=== PATIENT | male | born 1980 | race Caucasian/White ===

== ENCOUNTER → 2022-08-20 07:44 | Outpatient (CLI) | payer OTHER, SELFPAY ==
--- NOTE | ~2022-08-20 | MMUS_ITS ---
EXAMINATION: MM diagnostic mammo unilat LT, US breast LT limited HISTORY: Palpable left breast lump TECHNIQUE: Additional 3-D tomosynthesis images of the left breast were performed and synthetic 2-D im ages were generated. Comparison right medial lateral view performed. CAD analysis was submitted and interpreted. High reso lution Limited left breast ultrasound was performed. COMPARISON: None BREAST PARENCHYMAL COMPOSITION: Breast composed of scattered areas of fibroglandular density FINDINGS: MAMMOGRAPHIC FINDINGS: There is asymmetric gynecomastia, more prominent on the left. No discrete mass or architectural disto rtion. No suspicious calcifications. ULTRASOUND: Limited left breast ultrasound: There is normal appearance to the subareolar soft tissue of the left breast, consistent with breast bud. No suspicious masses or fluid collections. IMPRESSION: 1. No evidence for malignancy. Benign asymmetric gynecomastia. 2. Recommend follow-up clinical management for gynecomastia. BI-RADS Category 2: Benign finding(s). Reviewed, dictated and finalized at location A. IMPRESSION: 1. No evidence for malignancy. Benign asymmetric gynecomastia. 2. Recommend follow-up clinical management for gynecomastia. BI-RADS Category 2: Benign finding(s).
== END ==
PROVIDERS: PCP Nurse Practitioner; Visit Provider Nurse Practitioner
DX: N63.20 Unspecified lump in the left breast, unspecified quadrant (principal)
CPT/HCPCS: 76642; 77065

== ENCOUNTER 2023-02-17 15:34 | Emergency (ER) | payer OTHER, SELFPAY ==
[2023-02-17 15:43] VITALS: BP 118/75; PULSE 88; RESP 20; TEMP 37.3; O2SAT 97
--- NOTE | 2023-02-17 15:49 | ED.EXTPRO ---
HPI - Extremity Problem General Chief complaint: Extremity Problem,Nontraumatic Stated complaint: Legs Swelling Time Seen by Provider: 02/17/23 15:49 Source: patient, RN notes reviewed and old records reviewed Mode of arrival: ambulatory Limitations: no limitations History of Present Illness HPI Narrative: 42-year-old male presents to the [facility] with complaints of bilateral leg swelling for months. Patient also reports that on the left anterior there has been some discoloration for quite awhile. States he bumped it at 1 time it has not completely healed. No increased warmth to the area at this time. Patient states when he is up walking the swelling gets worse. Goes to bed at night the swelling goes away. Denies any chest pain, shortness of breath. Negative Homans sign MD Complaint: extremity swelling (Bilateral) Related Data Allergies Allergy/AdvReac Type Severity Reaction Status Date / Time No Known Allergies Allergy Verified 02/17/23 15:36 Review of Systems Review of Systems: All systems reviewed & are unremarkable except as noted in HPI and below Constitutional: Constitutional: Reports no additional constitutional complaints Eyes: Eyes: Reports no additional eye complaints ENT: Reports system reviewed and no additional complaints, except as documented Cardiovascular: Cardiovascular: Reports no additional cardiovascular complaints, Denies chest pain and Denies dyspnea Respiratory: Respiratory: Reports no additional respiratory complaints, Denies chest congestion, Denies cough and Denies dyspnea Gastrointestinal: Gastrointestinal: Reports no additional gastrointestinal complaints, Denies abdominal pain, Denies nausea and Denies vomiting Musculoskeletal: Musculoskeletal: Reports as per HPI Integumentary/Breasts: Skin/Breast: Reports system reviewed and no additional complaints, except as docu Neurologic: Reports system reviewed and no additional complaints, except as documented Psychiatric: Psychiatric: Reports no additional psychiatric complaints Allergic/Immunologic: Allergic/Immunologic: Reports no additional allergic/immunologic complaints [facility] Family History Family History Mother Hypertension Heart disease Other Alzheimer disease Social History Social History Social History: Caffeine- soda Smoking status: Current every day smoker (vapor) Tobacco type: e-cigarettes/vaping Alcohol intake: current Drinks per week: 1 Alcohol use details: Vodka/Whiskey Substance use: current Substance use type: marijuana Occupation/Education: occupation Gender identity (if verbalized by the patient): Male Comments At the time of my signature, I reviewed and agree with the nursing past medical, surgical, social, and family history. There is no relevant family history pertinent to the patient complaint. Exam Const: General: cooperative, healthy appearing, comfortable, no acute distress, well developed, alert and well nourished Nutritional Appearance: well nourished and obese morbidly obese Orientation/consciousness: patient oriented x3 Limitations: no limitations HENMT: Head: normal to inspection Ears: hearing grossly normal bilaterally and external ears normal Face/Nose/Sinus: Normal external nose present, Normal nares present, Normal nasal mucous membranes and turbinates present and normal facial exam Face and sinus: normal facial exam Mouth: Yes Normal oral and palatal mucosa present, Yes lip normal and Yes moist mucous membranes Eyes: General: appearance normal, both eyes and all related structures Alignment and Position: alignment normal Periorbital: periorbital findings normal Conjunctivae: conjunctivae normal Pupils: Equal, round and reactive pupils present EOM: EOMs intact bilaterally Neck: Neck: normal visual inspection, full ROM, no lymphadenopathy and no meningeal sig
== END 2023-02-17 16:06 | disposition home or self-care (01) ==
PROVIDERS: Emergency Provider Nurse Practitioner; PCP Family Medicine
DX: R60.0 Localized edema (principal); F17.290 Nicotine dependence, other tobacco product, uncomplicated; F12.90 Cannabis use, unspecified, uncomplicated
CPT/HCPCS: 99211; G0463

== ENCOUNTER 2023-03-24 09:00 | Outpatient (CLI) | payer OTHER, SELFPAY ==
--- NOTE | 2023-03-24 13:36 | ECHO_ITS ---
Patient Info Name: Issac Scruggs Age: 42 years : 1980 Gender: Male Ht: 72 in Wt: 383 lbs BSA: 3.06 m2 HR: 89 bpm BP: 138 / 87 mmHg Technical Quality: Poor Exam Date: 03/24/2023 2:08 PM Exam Location: [facility] Patient Status: Outpatient Admit Date: 03/24/2023 Staff Ordering Physician: Cristina Silverman DO Division Roadmaster: Shay Encarnacion RDCS Attending Provider: Cristina Silverman DO Referring Physician: Herrera LYNN; Exam Type: CA echo doppler color flow Study Info Indications - localized swelling TRAVIS MASS /LUMP Complete two-dimensional, color flow and Doppler transthoracic echocardiogram is performed with contrast to opacify the left ventricle and to improve the deliniation of the left ventricle endocardial borders. Contrast/Agitated Saline Contrast/Ag. Saline: Definity Amount: 4.00 ml Administered By: Odette Jay Existing IV Access: Yes IV Access Condition: patent with no signs of infiltration New IV Access: Left Site Condition: IV removed Reason for Poor Study: patient body habitus Summary 1. Technically suboptimal study due to poor sonographic images. 2. Definity contrast administered improved wall motion interpretation. 3. Left ventricular chamber dimension is normal. 4. Left ventricular systolic function is normal, estimated at 65-70%. 5. The left ventricular diastolic function is normal. 6. E/e' 6 is not elevated. 7. No pulmonary hypertension, estimated pulmonary arterial systolic pressure is 8 mmHg. Left Ventricle E/e' 6 is not elevated. Definity contrast administered improved wall motion interpretation. Technically suboptimal study due to poor sonographic images. Left ventricular chamber dimension is normal. Left ventricular systolic function is normal, estimated at 65-70%. The left ventricular diastolic function is normal. Right Ventricle Right ventricular chamber dimension is normal. Right ventricular systolic function is normal. Left Atria Left atrial chamber dimension is normal. Right Atria Right atrial chamber dimension is normal. Aortic Valve The aortic valve is probable trileaflet. There is no aortic valve stenosis. There is no aortic valve regurgitation. Pulmonic Valve There is no pulmonic regurgitation. Mitral Valve There is no mitral valve stenosis. There is no mitral valve regurgitation. Tricuspid Valve There is no tricuspid valve regurgitation. No pulmonary hypertension, estimated pulmonary arterial systolic pressure is 8 mmHg. Pericardium/Pleural There is no pericardial effusion. Inferior Vena Cava Normal inferior vena cava with >50% collapse upon inspiration consistent with normal right atrial pressure, 5 mmHg. Aorta The aortic root size at the sinus of Valsalva is normal. Left Ventricular Outflow Tract Name Value Normal LVOT 2D LVOT Diameter 2.4 cm LVOT Doppler LVOT Peak Gradient 3 mmHg LVOT Mean Gradient 2 mmHg LVOT VTI 21 cm LVOT VTI/AV VTI Ratio 1.3 LVOT Stroke Volume 93 ml LVOT CO
[2023-03-24] MEDS: PERFLUTREN LIPID MICROSPHERES 1.5 ML VIAL DILUTED TO 10 ML TOTAL VOLUME IV PUSH (14:55)
== END 2023-03-24 09:01 | disposition home or self-care (01) ==
PROVIDERS: PCP Family Medicine; Visit Provider Family Medicine
DX: R22.43 Localized swelling, mass and lump, lower limb, bilateral (principal)
CPT/HCPCS: C8929; Q9957

== ENCOUNTER 2023-10-28 11:25 | Emergency (ER) | payer OTHER, SELFPAY ==
[2023-10-28 11:34] VITALS: BP 135/87; PULSE 77; RESP 16; TEMP 36.8; O2SAT 100
--- NOTE | 2023-10-28 11:43 | ED.GENADULT ---
HPI - General Adult General Chief complaint: Skin/Abscess/Foreign Body Stated complaint: Cyst Time Seen by Provider: 10/28/23 11:43 Source: patient, RN notes reviewed and old records reviewed Mode of arrival: ambulatory Limitations: no limitations History of Present Illness HPI narrative: 43 year old male presents to the [facility] with concerns for a cyst to the left upper eyelid that is been there for ?years. Patient states that 2 days ago started becoming inflamed, yesterday and shower it drained some thick white pus. Area is swollen, no fluctuance noted. Denies any change in vision or blurry vision. Periorbital area is not swollen or red. Cyst measures 0.75 x 0.5 cm. Cyst is red, warm. Covering with an antibiotic referring to plastics or ophthalmology Related Data Home Medications Medication Instructions Recorded Confirmed metformin 500 mg tablet,extended 500 mg PO DAILY 03/04/23 10/28/23 release 24 hr testosterone enanthate 200 mg/mL 200 mg subcut DAILY 10/28/23 10/28/23 intramuscular oil triamcinolone acetonide 0.1 % 0.1 applic topical DIRECTED 10/28/23 10/28/23 topical cream Allergies Allergy/AdvReac Type Severity Reaction Status Date / Time No Known Allergies Allergy Verified 10/28/23 11:37 Review of Systems Review of Systems: All systems reviewed & are unremarkable except as noted in HPI and below Constitutional: Constitutional: Reports no additional constitutional complaints Eyes: Eyes: Reports as per HPI ENT: Reports system reviewed and no additional complaints, except as documented Cardiovascular: Cardiovascular: Reports no additional cardiovascular complaints, Denies chest pain and Denies dyspnea Respiratory: Respiratory: Reports no additional respiratory complaints, Denies chest congestion, Denies cough and Denies dyspnea Gastrointestinal: Gastrointestinal: Reports no additional gastrointestinal complaints, Denies abdominal pain, Denies nausea and Denies vomiting Musculoskeletal: Musculoskeletal: Reports no additional musculoskeletal complaints Integumentary/Breasts: Skin/Breast: Reports system reviewed and no additional complaints, except as docu Neurologic: Reports system reviewed and no additional complaints, except as documented Psychiatric: Psychiatric: Reports no additional psychiatric complaints Allergic/Immunologic: Allergic/Immunologic: Reports no additional allergic/immunologic complaints [facility] Family History Family History Mother Hypertension Heart disease Other Alzheimer disease Social History Social History Social History: Caffeine- soda Smoking status: Current every day smoker (vapor) Tobacco type: e-cigarettes/vaping Alcohol intake: current Alcohol use details: has a drink maybe once a month Substance use: current Substance use type: marijuana Other substance usage details: edibles Lack of Transportation: No Lack of Food: Never True Current Housing: I Have Housing Concerned About Future Housing: No Difficulty Paying Gas/Electric Bills: No Difficulty Paying for Meds: No Currently Unemployed: No Education: High School Diploma/GED Difficulty w/ Childcare or Family Care: No Occupation/Education: occupation Gender identity (if verbalized by the patient): Male Comments At the time of my signature, I reviewed and agree with the nursing past medical, surgical, social, and family history. There is no relevant family history pertinent to the patient complaint. Exam Const: General: cooperative, healthy appearing, comfortable, no acute distress, well developed, alert and well nourished Nutritional Appearance: well nourished Orientation/consciousness: patient oriented x3 Limitations: no limitations HENMT: Head: normal to inspection Ears: hearing grossly normal bilaterally and external ears normal Face/Nose/Sinus:
== END 2023-10-28 12:02 | disposition home or self-care (01) ==
PROVIDERS: Emergency Provider Nurse Practitioner; PCP Family Medicine
DX: H02.824 Cysts of left upper eyelid (principal); F17.290 Nicotine dependence, other tobacco product, uncomplicated; I10 Essential (primary) hypertension
CPT/HCPCS: 99213; G0463

== ENCOUNTER 2024-03-12 02:05 | Day surgery (SDC) | payer OTHER, SELFPAY ==
[2024-03-12 07:22] VITALS: BP 150/91; PULSE 103; RESP 19; TEMP 36.5; O2SAT 96; BMI 51.7
[2024-03-12] MEDS: LACTATED RINGERS 1,000 ML 150 ML IV CONT (07:31)
--- NOTE | 2024-03-12 07:53 | P.PNAN_ITS ---
Anes - Initial Pre Proc Eval Procedure: Operation Date: 03/12/24 08:30 Proposed Procedures p Screening Colonoscopy - Xander Sarmiento MD Date/Time: 03/12/24 07:53 Surgeon: Xander Sarmiento MD Pre Op Diagnosis: neoplasm screening Patient Data Age: 43 Gender: M Height: 1.83 m Weight: 173.2 kg Last Vital Signs Temp 97.7 F 03/12/24 07:22 Pulse 103 H 03/12/24 07:22 Resp 19 03/12/24 07:22 BP 150/91 H 03/12/24 07:22 Pulse Ox 96 03/12/24 07:22 O2 Del Method Room Air 03/12/24 07:22 Allergies Allergy/AdvReac Type Severity Reaction Status Date / Time No Known Allergies Allergy Verified 03/12/24 07:20 Home Medications Medication Instructions Recorded Confirmed Type furosemide 20 mg tablet 20 mg PO QAM #90 tabs 06/30/23 02/22/24 Rx triamcinolone acetonide 0.1 % 0.1 applic topical DIRECTED 10/28/23 02/22/24 History topical cream semaglutide (weight loss) 1.7 1.7 mg (0.75 mL) subcut WEEKLY #3 01/23/24 02/22/24 Rx mg/0.75 mL subcutaneous pen mL injector (Wegovy) semaglutide (weight loss) 2.4 2.4 mg (0.75 mL) subcut WEEKLY #9 03/06/24 03/12/24 Rx mg/0.75 mL subcutaneous pen mL injector (Wegovy) Patient hx anesthesia problems: none Family hx anesthesia problems: none Results Review: All pre-operative results and documents have been reviewed as part of the pre- operative evaluation. [facility] Family History Family History Mother Hypertension Heart disease Other Alzheimer disease Social History Social History Social History: Caffeine- soda Smoking status: Current every day smoker (vapor) Tobacco type: e-cigarettes/vaping Alcohol intake: current Alcohol use details: has a drink maybe once a month Substance use: current Substance use type: marijuana Other substance usage details: edibles Lack of Transportation: No Lack of Food: Never True Current Housing: I Have Housing Concerned About Future Housing: No Difficulty Paying Gas/Electric Bills: No Difficulty Paying for Meds: No Currently Unemployed: No Education: High School Diploma/GED Difficulty w/ Childcare or Family Care: No Occupation/Education: occupation Gender identity (if verbalized by the patient): Male Spiritual care concerns: No Anes - Eval Final PreProcedure Day of Procedure 03/12/24 07:53 Patient weight: super morbidly obese Heart: regular rate and rhythm Lungs: clear to auscultation Airway: Mallampati scale class II Neurological: alert and oriented Last oral intake: >/= 8 hours ASA classification: III Emergent: no Anesthetic plan: proceed Anesthesia type and monitoring: general GIVS and standard monitoring Results Review: All pre-operative results and documents have been reviewed as part of the pre- operative evaluation. Informed Consent: The patient's anesthetic plan and its attendant risks and benefits were discussed with the patient/family/POA. Questions were solicited and answers provided to the satisfaction of the patient/family/POA.
--- NOTE | 2024-03-12 08:28 | PM.HPGS ---
History of Present Illness History of Present Illness Consent: Risks, benefits, and alternatives have been discussed and questions answered. Patient agrees to proceed with procedure. Chief complaint: neoplasm screening Narrative: Issac Scruggs is a 43 year old male here for first screening colonoscopy Review of Systems Review of Systems: All systems reviewed & are unremarkable except as noted in HPI and below PMFSH Family History Family History Mother Hypertension Heart disease Other Alzheimer disease Social History Social History Social History: Caffeine- soda Smoking status: Current every day smoker (vapor) Tobacco type: e-cigarettes/vaping Alcohol intake: current Alcohol use details: has a drink maybe once a month Substance use: current Substance use type: marijuana Other substance usage details: edibles Lack of Transportation: No Lack of Food: Never True Current Housing: I Have Housing Concerned About Future Housing: No Difficulty Paying Gas/Electric Bills: No Difficulty Paying for Meds: No Currently Unemployed: No Education: High School Diploma/GED Difficulty w/ Childcare or Family Care: No Occupation/Education: occupation Gender identity (if verbalized by the patient): Male Spiritual care concerns: No Meds Home Medications and Allergies Home Medications Medication Instructions Recorded Confirmed Type furosemide 20 mg tablet 20 mg PO QAM #90 tabs 06/30/23 02/22/24 Rx triamcinolone acetonide 0.1 % 0.1 applic topical DIRECTED 10/28/23 02/22/24 History topical cream semaglutide (weight loss) 1.7 1.7 mg (0.75 mL) subcut WEEKLY #3 01/23/24 02/22/24 Rx mg/0.75 mL subcutaneous pen mL injector (Wegovy) semaglutide (weight loss) 2.4 2.4 mg (0.75 mL) subcut WEEKLY #9 03/06/24 03/12/24 Rx mg/0.75 mL subcutaneous pen mL injector (Wegovy) Allergies Allergy/AdvReac Type Severity Reaction Status Date / Time No Known Allergies Allergy Verified 03/12/24 07:20 Vital Signs Vital Signs - 24 hr 03/12/24 07:22 Temperature 97.7 F Pulse Rate 103 H Respiratory Rate 19 Blood Pressure 150/91 H Pulse Oximetry 96 Oxygen Delivery Room Air Exam Const: General: comfortable and no acute distress HENMT: Face/Nose/Sinus: Normal nares present Eyes: General: appearance normal, both eyes and all related structures Neck: Neck: no JVD Resp: Auscultation: clear to auscultation bilaterally Cardio: Rate: regular rate Rhythm: regular rhythm GI: Inspection: non-distended GI Palp: Yes Soft to palpation Skin: General skin exam: normal color Neuro: General: gait normal Speech: normal speech Extrem: General: normal to inspection Psych: Mental Status: mental status grossly normal Assessment and Plan Assessment and plan (1) Screening for colon cancer: Code(s): Z12.11 - Encounter for screening for malignant neoplasm of colon Status: Acute Assessment and Plan: colonoscopy
[2024-03-12 08:47] VITALS: BP 120/75; PULSE 88; RESP 20; O2SAT 96
[2024-03-12 08:57] VITALS: BP 108/69; PULSE 86; RESP 20; O2SAT 100
[2024-03-12 09:07] VITALS: BP 120/79; PULSE 85; RESP 20; O2SAT 100
== END 2024-03-12 09:14 | disposition home or self-care (01) ==
PROVIDERS: PCP Family Medicine; Visit Provider Internal Medicine Gastroenterology
PROC: 0DJD8ZZ Inspection of Lower Intestinal Tract, Via Natural or Artificial Opening Endoscopic (ICD-10-PCS; CPT 45378; principal; 2024-03-12 08:30)
DX: Z12.11 Encounter for screening for malignant neoplasm of colon (principal); F17.290 Nicotine dependence, other tobacco product, uncomplicated; F12.90 Cannabis use, unspecified, uncomplicated; E66.01 Morbid (severe) obesity due to excess calories; Z68.43 Body mass index [BMI] 50.0-59.9, adult; Z79.85 Long-term (current) use of injectable non-insulin antidiabetic drugs; Z82.49 Family history of ischemic heart disease and other diseases of the circulatory system
CPT/HCPCS: 45378; J2704; J7120

== ENCOUNTER 2025-06-06 07:36 | Emergency (ER) | payer OTHER, SELFPAY ==
--- OUTSIDE RECORDS SUMMARY | 2025-06-06 07:38 | XMS_ITS | Clinical Summary ---
Author Organization [facility] Address [address] [address] Phone Care Team Providers Care Server Software Engineer Name Role Phone No, Physician Primary Care Provider [phone] Allergies No known active allergies Medications hydroCHLOROthi azide (HYDRODIURIL) 12.5 mg tablet 2 Active furosemide (LASIX) 20 mg tablet Take 1 tablet (20 mg total) by mouth every morning 3 Active metFORMIN XR (GLUCOPHAGE XR) 500 mg 24 hr tablet TAKE 1 TABLET BY MOUTH EVERY DAY AT DINNER FOR 90 DAYS 3 Active BD Regular Bevel [place] 18 gauge x 1 needle WITHDRAW TESTOSTERONE ONCE WEEKLY X 90 DAYS 3 Active triamcinolone (KENALOG) 0.1 % cream APPLY TO AFFECTED AREAS ON LOWER LEGS TWICE DAILY FOR 3 WEEKS, THEN 1 WEEK OFF THEN REPEAT IF NEEDED 3 Active BD Luer-Bobbi Syringe 3 mL 25 gauge x 1 syringe TO INJECT TESTOSTERONE WEEKLY X 90 DAYS 3 Active semaglutide (Wegovy) 0.25 mg/0.5 mL auto-injector INJECT 0.25 MG ONCE WEEKLY AT DINNER FOR 4 WEEKS Active semaglutide (Wegovy) 0.5 mg/0.5 mL auto-injector Inject 0.5 mg every week by subcutaneous route at dinner for 90 days. 3 Active testosterone enanthate 200 mg/mL injection INJECT 1 ML EVERY WEEK BY INTRAMUSCULAR ROUTE IN THE MORNING FOR 90 DAYS. Active Active Problems Problem Noted Date Diagnosed Date Lesion of left upper eyelid 11/24/2023 Assessment & Plan (11/24/2023 10:00 PM JAVA JSF DEVELOPER): Risks, benefits and alternatives were discussed. Risks included but were not limited to pain, bleeding, scarring, recurrence, and possible need for additional procedures. Following this discussion, the patient wishes to proceed with left upper eyelid (YOAV) lesion excision. This was performed today without any complications. They will follow-up as needed and will continue comprehensive eye care with Dr. Neftali Koo,* . Obesity 06/06/2023 Impaired fasting glucose 02/11/2023 Male hypogonadism 02/11/2023 Decreased testosterone level 01/31/2023 Fatigue 01/31/2023 Goiter 01/31/2023 Social History Tobacco Use Types Packs/Day Years Used Date Smoking Tobacco: Every Day Vaping Smokeless Tobacco: Never Tobacco Cessation:Ready to Q uit: Not Asked; Counseling Given: Not Answered Personal Safety Answer Date Recorded Getting School Help Needed Not on file 10/16 Sex and Gender Information Value Date Recorded Sex Assigned at Not on file Legal Sex Male 6:40 AM JAVA JSF DEVELOPER Gender Identity Not on file Sexual Orientation Not on file Obstetrics History Last Filed Vital Signs Vital Sign Reading Time Taken Comments Blood Pressure 134/81 12/17/2022 2:29 PM JAVA JSF DEVELOPER Pulse 82 12/17/2022 2:29 PM JAVA JSF DEVELOPER Temperature 37 C (98.6 F) 12/17/2022 2:29 PM JAVA JSF DEVELOPER Respiratory Rate 18 12/17/2022 2:29 PM JAVA JSF DEVELOPER Oxygen Saturation 97% 12/17/2022 2:29 PM JAVA JSF DEVELOPER Inhaled Oxygen Concentration - - Weight 173.3 kg (382 lb) 05/04/2023 10:05 AM CDT Height 182.9 cm (6' 0.01) 05/04/2023 10:05 AM C DT Body Mass Index 51.79 05/04/2023 10:05 AM CDT Plan of Treatment Health Maintenance Due Date Last Done Comments Colon Cancer Screening-Colonoscopy 1980 Depression Screening 1980 Hepatitis C Screening 1980 DTaP/Tdap/Td Vaccine (1 - Tdap) 1989 Hepatitis B Screening 1996 Regular Well Visit/Exam 18-64 1996 Pneumococcal vaccine <65 (1 of 2 - PCV) 1997 Covid-19 Vaccine (2 - 2023-2 5 season) 2024 01/06/2021 Influenza Vaccine (#1) 2025 HPV Vaccines Aged Out No longer eligi ble based on patient's age to complete this topic Insurance [facility] H[facility]/PPO Address: [address] [address] [place] [address] [facility]/PPO Address: [address] [address] [place] [address] Care Teams Server Software Engineer Relationship Specialty Start Date End Date No, Physician PCP - General 01/04/22
[2025-06-06 07:48] VITALS: BP 131/95; PULSE 93; RESP 16; TEMP 37; O2SAT 98
--- OUTSIDE RECORDS SUMMARY | 2025-06-06 08:24 | XMS_ITS | Clinical Summary ---
Author Organization [facility] Address [address] [address] Phone Care Team Providers Care Regional Geodetic Advisor Name Role Phone No, Physician Primary Care Provider Allergies No known active allergies Medications hydroCHLOROthi azide (HYDRODIURIL) 12.5 mg tablet 2 Active furosemide (LASIX) 20 mg tablet Take 1 tablet (20 mg total) by mouth every morning 3 Active metFORMIN XR (GLUCOPHAGE XR) 500 mg 24 hr tablet TAKE 1 TABLET BY MOUTH EVERY DAY AT DINNER FOR 90 DAYS 3 Active BD Regular Bevel [place] 18 gauge x 1 needle WITHDRAW TESTOSTERONE [...] 11/24/2023 Assessment & Plan (11/24/2023 10:00 PM CORPORATE CLAIMS EXAMINER): Risks, benefits and alternatives were discussed. Risks [...] on file Legal Sex Male 6:40 AM CORPORATE CLAIMS EXAMINER Gender Identity Not on file Sexual Orientation Not on file Obstetrics History Last Filed Vital Signs Vital Sign Reading Time Taken Comments Blood Pressure 134/81 12/17/2022 2:29 PM CORPORATE CLAIMS EXAMINER Pulse 82 12/17/2022 2:29 PM CORPORATE CLAIMS EXAMINER Temperature 37 C (98.6 F) 12/17/2022 2:29 PM CORPORATE CLAIMS EXAMINER Respiratory Rate 18 12/17/2022 2:29 PM CORPORATE CLAIMS EXAMINER Oxygen Saturation 97% 12/17/2022 2:29 PM CORPORATE CLAIMS EXAMINER Inhaled Oxygen Concentration - - Weight 173.3 [...] patient's age to complete this topic Insurance [facility]/PPO Address: [address] [address] [place] [address] [facility] H[facility]/PPO Address: [address] [address] [place] [address] Care Teams Regional Geodetic Advisor Relationship Specialty Start Date End Date No, Physician PCP - General 01/04/22
--- NOTE | 2025-06-06 08:28 | ED.GENADULT ---
HPI - General Adult General Chief complaint: Skin/Abscess/Foreign Body Stated complaint: rectal bleeding Time Seen by Provider: 06/06/25 07:48 History of Present Illness HPI narrative: Patient is a 44-year-old male who presents ER with rectal bleeding. Reports he went on a float trip over the weekend. He woke up with a tender firm mass around the rectum. Left side. It then increased in size. He thought he had some mucus-like drainage from the area. He then had significant bleeding and evacuation of clot yesterday evening. He has continued is. Pain is decreased. No fevers or chills or sweats. Reports he takes fiber gummies for intermittent constipation but no significant stool retention recently. Related Data Home Medications ?Medication ?Instructions ?Recorded ?Confirmed ?Last Taken ?Type triamcinolone acetonide 0.1 % 0.1 applic topical DIRECTED 10/28/23 03/18/25 Unknown History topical cream amoxicillin 875 mg-potassium tablet PO 03/18/25 03/18/25 Unknown History clavulanate 125 mg tablet Allergies Allergy/AdvReac Type Severity Reaction Status Date / Time No Known Allergies Allergy Verified 03/18/25 14:22 Review of Systems Constitutional: Constitutional: Reports no additional constitutional complaints Gastrointestinal: Gastrointestinal: Reports no additional gastrointestinal complaints Genitourinary: Genitourinary: Reports no additional male genitourinary complaints [facility] Past Medical History Medical History (Updated 06/06/25 @ 08:35 by Caludy Hein MD) Pure hypercholesterolemia Family History Family History Mother Hypertension Heart disease Other Alzheimer disease Social History Social History Social History: Caffeine- soda Smoking status: Current every day smoker (vapor) Tobacco type: e-cigarettes/vaping Alcohol intake: current Alcohol use details: has a drink maybe once a month Substance use: current Substance use type: marijuana Other substance usage details: edibles Lack of Transportation: No Lack of Food: Never True Current Housing: I Have Housing Concerned About Future Housing: No Difficulty Paying Gas/Electric Bills: No Difficulty Paying for Meds: No Currently Unemployed: No Education: High School Diploma/GED Difficulty w/ Childcare or Family Care: No Occupation/Education: occupation Gender identity (if verbalized by the patient): Male Spiritual care concerns: No Exam Narrative: GENERAL: Well-appearing, well-nourished, and in no acute distress. HEAD: Normocephalic, atraumatic. ENT: Mucous membranes moist. EXTREMITIES: Normal range of motion. No edema. RECTAL: Thrombosed hemorrhoid at 6 o'clock position in the left lateral decubitus position. No significant erythema or tenderness. No induration. There is an area of clotting where patient had evacuated the hemorrhoid. Additional varicose vein seen in area. SKIN: Warm, dry, no rash. NEURO: Alert and oriented x3. PSYCH: Normal mood and affect. Course Course Emergency Course: 4 mL of lidocaine with epinephrine injected around the MRI aide. Needle aspiration attempted and no pus or blood obtained. Recommend conservative therapy with sits salt water baths, topical steroids, continued fiber at home, and follow-up with General surgery. Vital Signs Vital signs: Vital Signs Temperature 98.6 F 06/06/25 07:48 Pulse Rate 93 06/06/25 07:48 Respiratory Rate 16 06/06/25 07:48 Blood Pressure 131/95 H 06/06/25 07:48 Pulse Oximetry 98 06/06/25 07:48 Oxygen Delivery Room Air 06/06/25 07:48 Temperature 98.6 F 06/06/25 07:48 Pulse Rate 93 06/06/25 07:48 Respiratory Rate 16 06/06/25 07:48 Blood Pressure 131/95 H 06/06/25 07:48 Pulse Oximetry 98 06/06/25 07:48 Oxygen Delivery Room Air 06/06/25 07:48 Medical Decision Making Vital Signs Vital Signs: Vital Signs Temperature 98.6 F 06/06/25 07:48 Pulse Rate 93 06/06/25 07:48 Respiratory Rate 16 06/06/25 07:48 Blood Pressure 131/95 H 06/06/25 07:48 Pulse Oximetry 98 06/06/25 07:48 Oxygen Delivery Room Air 06/06/25 07:48 Temperature 98.6 F 06/06/25 07:48 Pulse Rate 93 06/06/25 07:48 Respiratory Rate 16 06/06/25 07:48 Blood Pressure 131/95 H 06/06/25 07:48 Pulse Oximetry 98 06/06/25 07:48 Oxygen Delivery Room Air 06/06/25 07:48 Discharge Plan Discharge Clinical Impression: Hemorrhoid Patient Disposition: Home Condition: Stable Instructions: Hemorrhoids (ED) Additional Instructions: Perform warm Sitz salt water baths 2 to 3 times a day. You may apply topical witch Landon to help decrease the size of your hemorrhoid. Additionally you may apply topicals steroids. Continue to take fiber daily so your not straining to have a bowel movement. Return the ER if you have significant bleeding, you have increased pain, or you have additional concerns. Patient Language: Yi Prescriptions: New Tucks (witch landon) 50 % pads, medicated 1 pad topical BID Qty: 40 0RF hydrocortisone [Anusol-HC] 2.5 % cream with perineal applicator 1 applic RECTAL DAILY PRN (Reason: hemorrhoids) Qty: 30 0RF No Action triamcinolone acetonide 0.1 % cream 0.1 applic TOPICAL DIRECTED amoxicillin-pot clavulanate 875-125 mg tablet PO metformin 500 mg tablet extended release 24 hr See Rx Instructions .ROUTE .COMPLEX Qty: 360 1RF Dose Instruction: TAKE 2 TABLETS BY MOUTH TWICE A DAY Rx Instructions: TAKE 2 TABLETS BY MOUTH TWICE A DAY Zepbound 15 mg/0.5 mL pen injector 15 mg subcut WEEKLY Qty: 6 5RF Follow-up/Referrals: Cristina Silverman DO [Primary Care Provider] - Bear Epperson MD [Physician] - 1 Week
== END 2025-06-06 08:48 | disposition home or self-care (01) ==
PROVIDERS: Emergency Provider Emergency Medicine; PCP Family Medicine
DX: K64.5 Perianal venous thrombosis (principal); E78.00 Pure hypercholesterolemia, unspecified; F17.290 Nicotine dependence, other tobacco product, uncomplicated
CPT/HCPCS: 99283; J2004